=== PATIENT | female | born 1935 | race Caucasian/White ===

== ENCOUNTER 2017-09-22 08:20 | Emergency (ER) | payer MEDICARE, BC ==
[2017-09-22 08:40] VITALS: BP 134/47
--- NOTE | 2017-09-22 09:32 | RAD ---
Indication: Shortness of breath, cough. Comparison is made with previous exam dated August 08, 2016. 2 views of the chest including dual energy PA views demonstrate no mediastinal shift. Heart is of normal size. There appears to be calcifications of the mitral valve annulus. There is blunting of the costophrenic angles bilaterally which may represent small pleural effusions. IMPRESSION: There may be small pleural effusions. No definite pneumonia is identified.
--- NOTE | 2017-09-22 10:11 | UC ---
Jose Chisholm Benjamin, scribed for Kendall Desir MD on 09/22/17 at 0921 . Respiratory Complaint HPI - HPI Summary HPI Summary: 82yo female c/o congested cough for 3-4 days with some sputum production. Pt also feels SOB and winded. Also reports runny nose preceding her cough. Pt states that several people at her mandaen have PNA. Pt is scheduled for a left hip revision on 10/05. Pt is concerned about whether she will still be cleared for surgery after developing her current symptoms. PMHx of HTN, arthritis, heart murmur, CHF, and multiple orthopedic operations. - History of Current Complaint Chief Complaint: UCGeneralIllness Stated Complaint: RESP Hx Obtained From: Patient, Family/Consultant - daughter ?: No Onset/Duration: Gradual Onset, Lasting Days - 3-4 days, Still Present Timing: Constant Severity Initially: Mild Severity Currently: Mild Pain Intensity: 0 Pain Scale Used: 0-10 Numeric Character: Cough: Productive Aggravating Factors: Nothing Alleviating Factors: Nothing Associated Signs And Symptoms: Positive: Nasal Congestion - Risk Factors Cardiac Risk Factors: Hypertension - Allergies/Home Medications Allergies/Adverse Reactions: Allergies Allergy/AdvReac Type Severity Reaction Status Date / Time Valsartan Allergy Intermediate Coughing Verified 09/22/17 08:24 Benazepril Allergy Coughing Verified 09/22/17 08:24 Penicillins Allergy Unknown Verified 09/22/17 08:24 Reaction Details Tramadol Allergy Unknown Verified 09/22/17 08:24 Reaction Details Home Medications: Home Medications Acetaminophen [Acetaminophen Extra Stren] 500 mg PO TID 09/22/17 [History Confirmed 09/22/17] Ferrous Gluconate TAB* [Fergon TAB*] 325 mg PO BID 09/22/17 [History Confirmed 09/22/17] Torsemide TAB* [Demadex*] 20 mg PO DAILY 09/22/17 [History Confirmed 09/22/17] PMH/Surg Hx/FS Hx/Imm Hx Cardiovascular History: Hypertension, Congestive Heart Failure - Surgical History Surgical History: Yes Surgery Procedure, Year, and Place: TONSILLECTOMY A CHILD. HYSTERECTOMY 1982 [facility]. L FOOT BUNIONECTOMY 2005 [facility]. R TKR 2006 [facility]. ORIF L ARM AND HIP 2006 [facility]. L THR 2012 [facility]. BILAT CATARACTS [facility] - Family History Known Family History: Negative: Blood Disorder Family History: No FHx malignant hyperthermia, no FHx anesthesia reaction - Social History Occupation: Retired Lives: Alone Alcohol Use: None Substance Use Type: None Smoking Status (MU): Never Smoked Tobacco - Immunization History Most Recent Influenza Vaccination: 2016 Most Recent Tetanus Shot: UNKNOWN Most Recent Pneumonia Vaccination: 2014 Review of Systems Constitutional: Negative Skin: Negative Eyes: Negative ENT: Nasal Discharge Respiratory: Shortness Of Breath, Cough Cardiovascular: Negative Gastrointestinal: Negative Genitourinary: Negative Motor: Negative Neurovascular: Negative Musculoskeletal: Negative Neurological: Negative Psychological: Negative All Other Systems Reviewed And Are Negative: Yes Physical Exam Triage Information Reviewed: Yes Vital Signs: Initial Vital Signs Temp 99.3 F 09/22/17 08:31 Pulse 56 09/22/17 08:31 Resp 22 09/22/17 08:31 BP 134/47 09/22/17 08:31 Pulse Ox 99 09/22/17 08:31 Vital Signs Reviewed: Yes ENT Exam: Normal ENT: Positive: Pharynx normal, Nasal congestion, TMs normal. Negative: Muffled voice, Hoarse voice Neck exam: Normal Respiratory: Positive: Chest non-tender, Lungs clear Cardiovascular: Positive: RRR, No Murmur Abdomen Description: Positive: Nontender Musculoskeletal: Positive: Strength Intact, ROM Intact. Negative: No Edema Neurological: Positive: Alert, Muscle Tone Normal Psychological: Positive: Normal Response To Family Skin Exam: Normal UC Diagnostic Evaluation - Laboratory Pertinent Lab Values Are: WNL - negative flu swab O2 Sat by Pulse Oximetry: 99 - Radiology Xray Interpretation: No Acute Changes - IMPRESSION: There may be small pleural effusions. No definite pneumonia is identified. Radiology Interpretation Completed By: Radiologist - ED physician has reviewed this radiology report and agrees. Respiratory Course/Dx - Course Course Of Treatment: Reviewed pts medication and allergy lists. High Blood pressure noted. Discussed pt case with Dr. Rousseau (pt's PCP) at [address] Rousseau reviewed her prior xrays and today, and given new possible small effusions and the productive cough, chills symptoms we will start her on Levaquin and he will see her tomorrow for reevaluation. - Differential Dx/Diagnosis Provider Diagnoses: Community Acquired Pnemonia Discharge - Discharge Plan Condition: Good Disposition: HOME Prescriptions: Levofloxacin TAB* [Levaquin TAB*] 500 mg PO DAILY #10 tab Patient Education Materials: Bacterial Pneumonia (ED) Referrals: Bebeto Rousseau MD [Primary Care Provider] - 1 Day The documentation as recorded by the Jose cornell Benjamin accurately reflects the service I personally performed and the decisions made by me, Kendall Desir MD.
== END 2017-09-22 10:15 | disposition home or self-care (01) ==
LOC: UCEAST 08:20
DX: J18.8 Other pneumonia, unspecified organism (principal); I50.9 Heart failure, unspecified; I10 Essential (primary) hypertension
CPT/HCPCS: 71020; 87502; 99212; G0463

== ENCOUNTER 2018-09-01 05:54 | Inpatient (IN) | payer MEDICARE, BC ==
--- NOTE | 2018-08-17 18:57 | HP ---
AMENDED REPORT NOW INCLUDES DESIGNATED COSIGNER PREOPERATIVE HISTORY AND PHYSICAL: DATE OF ADMISSION/SURGERY: 09/01/18 DATE OF OFFICE VISIT: 08/17/18 ATTENDING SURGEON: Dr. Robin Marie.* (DICTATED BY KEYSHA BUCHANAN) PROCEDURE: Right total shoulder reverse. CHIEF COMPLAINT: Right shoulder pain. HISTORY OF PRESENT ILLNESS: Shadia is an 83-year-old female, who presents to the clinic for right shoulder pain due to osteoarthritis. She failed conservative measures and therefore agreed to undergo right total shoulder reverse with Dr. Marie on 09/01/18. PAST MEDICAL HISTORY: High cholesterol, hypertension, recent NM in July 2016 , GERD, and osteoporosis. PAST SURGICAL HISTORY: Gamma nail of the left hip, left hip hemiarthroplasty and left total hip arthroplasty, left shoulder replacement, right total knee arthroplasty, right toe surgery, and hysterectomy. The patient denies complications to anesthesia. She does get nausea with anesthesia. MEDICATIONS: 1. Metoprolol succinate ER 100 mg 1 by mouth every day. 2. Amlodipine 10 mg 1 by mouth every day. 3. Calcium, vitamin E 600 mg 2 by mouth every day. 4. Atorvastatin calcium 80 mg 1 by mouth every day. 5. Aspirin 81 mg 1 by mouth every day. 6. Olmesartan 40 mg once daily. 7. Torsemide 10 mg once daily. 8. Tylenol Extra Strength 500 mg 1 by mouth 6 times per day. ALLERGIES: PENICILLIN, VALSARTAN, some BLOOD PRESSURE MEDS. FAMILY HISTORY: Positive for heart disease, cancer, and hypertension. SOCIAL HISTORY: She lives alone. 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 She denies tobacco, alcohol, or illicit drug use. REVIEW OF SYSTEMS: A 14-point review of systems was reviewed with the patient. Positive for current complaints, otherwise negative. Denies fevers, chills, chest pain, shortness of breath, history of DVT or PE, history of bleeding disorder, history of MRSA. PHYSICAL EXAMINATION GENERAL: An 83-year-old well-developed, well-nourished female, in no acute distress. Alert and oriented x3. Appropriate mood and affect. Appropriate balance and coordination of the upper extremities. VITAL SIGNS: Height 59, weight 122, pulse 60, blood pressure 162/74, temperature 97.7, BMI 24.8. HEENT: Normocephalic, atraumatic. PERRLA. Throat clear. NECK: Supple. PULMONARY: Lungs clear to auscultation bilaterally. No wheezing, rhonchi, or rales. CARDIO: Regular rate and rhythm. S1 and S2. No murmurs, gallops, or rubs. No edema. ABDOMEN: Positive bowel sounds. Soft and nontender. MUSCULOSKELETAL: Right upper extremity skin intact. No warmth or erythema. Forward flexion 100, abduction 80, external rotation to 30. Full range of motion of the elbow, wrist, and hand. +2 radial pulse. Sensation intact to light touch distally. Pain and weakness through rotator cuff testing. NEURO: Alert and oriented x3. Cranial nerves grossly intact. Sensation intact to light touch. STUDIES: X-rays and MRIs reveal advanced glenohumeral joint osteoarthritis, massive full-thickness rotator cuff retracted with superior migration of the humeral head. ASSESSMENT: Right shoulder osteoarthritis. PLAN: The patient is scheduled to undergo a right total shoulder reverse with Dr. Marie on 09/01/18. Zofran will be used postoperatively on the floor to prevent nausea. We will watch IV fluids and minimize the use of IV fluids due to her history of heart failure. Percocet will be e-scribed for postop pain management. She will follow up 10 to 14 days postop for followup and suture removal. KEYSHA BUCHANAN [id number]/[facility] #: [id number] MTDD
[~2018-09-01 05:54] MED LIST: Buffered Lidocaine 0.9% SYRIN* 5 ML/SYR SYRINGE INTRADERM ONE; Morphine VIAL* 4 MG/ML VIAL (1 ml vial) IV PRN; Naloxone* 0.4 MG/ML 1 ML VIAL IV PRN; Ondansetron TAB* 4 MG PO ONE; PROCHLORPERAZINE INJ 5 MG/ML 2 ML VIAL IV PRN; fentaNYL* 50 MCG/ML 2 ML VIAL (100 MCG VIAL) IV PRN
--- OUTSIDE RECORDS SUMMARY | 2018-09-01 05:58 | XMS REPORT ---
:1935 External Reference #:[id number] Author Organization [facility] Address [address] [place] [address] Phone [phone] Care Team Providers Name Role Phone Bebeto Rousseau MD Primary Care Physician Unavailable Payers Type Date Identification Numbers Payment Provider Subscriber Medicare Primary Policy Number: [id number] Medicare Kathy Damongorder PayID: [id number] [address] [place] [address] [place] Part B Effective: 2005 Policy Number: Medicare Kathy Engelrder [id number] Expires: 2018 PayID: [id number] [address] [place] [address] [employer] Part B Effective: Policy Number: [facility] Kathy Damongorder 2014 [id number] PayID: [id number] [address] [address] [place] [address] Problems Date Description Provider Status Onset: 07/26/2015 Localized, secondary Aaron Jurado M.D. 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 Cigarette Use Never Smoked Cigarettes ETOH Use Denies alcohol use Smoking Patient has never smoked Recreational Drug Use Denies Drug Use Daily Caffeine Consumes on average 2 cups of regular coffee per day Exercise Type/Frequency Exercises regularly Short walks to mailboxDocument: 07/22/17 - Pulmonology Consultation Exercise Type/Frequency ROM class 2x per weekDocument: 07/22/17 - Pulmonology Consultation Allergies, Adverse Reactions, Alerts Date Description Reaction Status Severity Comments 10/02/2015 Penicillin active 10/02/2015 Some Blood Pressure Medications active 08/14/2016 Valsartan active 07/10/2015 NKDA inactive Medications Medication Date Status Form Strength Qnty SIG Indications Ordering Provider Metoprolol / Active Tablets ER 100mg 1 by mouth Unknown Succinate ER 0000 24HR every day pt now receives medication from Dr Rousseau Amlodipine / Active Tablets 10mg 1 by mouth Unknown Besylate 0000 every day Calcium With / Active Tablets 600mg 2 by mouth Unknown Vit D 600 0000 every day Atorvastatin 00/ Active Tablets 80mg 1 by mouth Unknown Calcium 0000 every day Aspir-Low 00/ Active Tablets DR 81mg 1 by mouth Unknown 0000 every day Olmesartan /00/ Active Tablets 40mg Once daily Unknown Medoxomil 0000 Torsemide / Active Tablets 10mg 1 po daily Unknown 0000 Tylenol Extra 00/ Active Tablets 500mg 1 po 6 Unknown Strength 0000 times per day Proair HFA 07/22/ Hx Aerosol 108(90Bas 8.500 1 puff R06.02 Ivis 2017 - e) gm every 6 Felipa, 08/02/ mcg/Act hours as 2018 needed Lidoderm 09/04/ Hx Patches 5% 30uni apply every Zaneb 2015 - 12 hours as Cynthia 03/05/ needed for MD Hernandez pain Meloxicam / Hx Suspension 7.5mg/5ML Unknown 0000 - 2015 Benicar HCT / Hx Tablets 40-12.5mg daily Unknown 0000 - 2016 Simvastatin /00/ Hx Tablets 20mg 1 by mouth Unknown 0000 - every day 2015 Tylenol / Hx Tablets 325mg prn Unknown 0000 - 2016 Aspirin / Hx Tablets DR 81mg 1 by mouth Unknown 0000 - every day 2016 Clopidogrel / Hx Tablets 75mg 1 by mouth Unknown Bisulfate 0000 - every day 2017 Furosemide / Hx Tablets 40mg alternate Marcis T. 0000 - 40mg and Sodums, 01/13/ 80mgs , [facility], 2018 [facility] Potassium / Hx Tablets ER 40Meq 1 by mouth Unknown Chloride ER 0000 - every day 2017 Nitrostat / Hx Tablets Sub 0.4mg one sl Unknown 0000 - q5min up to doses as 2017 needed Iron / Hx Tablets 325(65Fe) 2 by mouth Unknown 0000 - mg every day Am and PM 2017 (pre-op. Surgery Thursday) Medications Administered in Office Medication Date Status Form Strength Qnty SIG Indications Ordering Provider Triamcinolone 03/26/ Administered Injection Zaneb (Kenalog) 2017 MD Cynthia Depomedrol 80MG 07/10/ Administered Injection Aaron Jurado M.D. Vital Signs Date Vital Result Comment 08/17/2018 Height 59 inches 4'11" Weight 122.75 lb Heart Rate 60 /min BP Systolic Sitting 162 mmHg BP Diastolic Sitting 74 mmHg Body Temperature 97.7 F Pain Level 6 intermittent 10 BMI (Body Mass Index) 24.8 kg/m2 08/03/2018 Height 59 inches 4'11" Weight 120.00 lb Heart Rate 84 /min BP Systolic 146 mmHg BP Diastolic 60 mmHg Respiratory Rate 22 /min Body Temperature 98.6 F Pain Level 8 right shoulder BMI (Body Mass Index) 24.2 kg/m2 03/26/2018 Height 59 inches 4'11" Weight 120.00 lb BP Systolic 120 mmHg BP Diastolic 64 mmHg Respiratory Rate 20 /min Body Temperature 98.1 F Pain Level 7 BMI (Body Mass Index) 24.2 kg/m2 01/14/2018 Height 59 inches 4'11" Weight 120.00 lb Heart Rate 64 /min BP Systolic Sitting 144 mmHg Lue reg cuff BP Diastolic Sitting 62 mmHg Lue reg cuff Respiratory Rate 16 /min O2 % BldC Oximetry 98 % On Ra BMI (Body Mass Index) 24.2 kg/m2 01/14/2018 Height 59 inches 4'11" O2 % BldC Oximetry 98 % On Ra 07/22/2017 Height 59 inches 4'11" Weight 118.38 lb With shoes Heart Rate 64 /min BP Systolic Sitting 144 mmHg Rue reg cuff BP Diastolic Sitting 66 mmHg Rue reg cuff Respiratory Rate 16 /min O2 % BldC Oximetry 97 % On Ra BMI (Body Mass Index) 23.9 kg/m2 07/02/2017 Height 58.75 inches 4'10.75" Weight 119.00 lb shoes on Heart Rate 58 /min BP Systolic Sitting 130 mmHg lue reg cuff BP Diastolic Sitting 62 mmHg lue reg cuff BP Systolic Standing 134 mmHg lue reg cuff BP Diastolic Standing 62 mmHg lue reg cuff BMI (Body Mass Index) 24.2 kg/m2 Ejection Fraction 65% Echo 09/08/16 03/06/2017 Height 58.75 inches 4'10.75" Weight 108.00 lb Heart Rate 64 /min BP Systolic 143 mmHg BP Diastolic 59 mmHg Body Temperature 97.4 F Pain Level 8 BMI (Body Mass Index) 22.0 kg/m2 09/04/2016 Height 59 inches 4'11" Weight 122.00 lb Heart Rate 60 /min Respiratory Rate 16 /min Pain Level 5 BMI (Body Mass Index) 24.6 kg/m2 08/29/2016 Height 59 inches 4'11" Weight 122.50 lb with shoes Heart Rate 64 /min BP Systolic Sitting 152 mmHg LA reg cuff BP Diastolic Sitting 80 mmHg LA reg cuff BMI (Body Mass Index) 24.7 kg/m2 Ejection Fraction >65% 08/08/16 echo 08/18/2016 Height 59 inches 4'11" Weight 123.00 lb Heart Rate 52 /min 56 BP Systolic Sitting 142 mmHg right arm, reg cuff BP Diastolic Sitting 66 mmHg right arm, reg cuff BP Systolic Standing 138 mmHg right arm, reg cuff BP Diastolic Standing 66 mmHg right arm, reg cuff Respiratory Rate 16 /min BMI (Body Mass Index) 24.8 kg/m2 Ejection Fraction >65% 08/08/16 08/14/2016 Height 59 inches 4'11" Weight 123.00 lb Heart Rate 54 /min 58 BP Systolic Sitting 128 mmHg right arm, reg cuff BP Diastolic Sitting 68 mmHg right arm, reg cuff BP Systolic Standing 126 mmHg right arm, reg cuff BP Diastolic Standing 64 mmHg right arm, reg cuff Respiratory Rate 16 /min BMI (Body Mass Index) 24.8 kg/m2 Ejection Fraction >65% 08/08/16 07/24/2016 Height 59 inches 4'11" Weight 125.00 lb Respiratory Rate 16 /min Pain Level 6 BMI (Body Mass Index) 25.2 kg/m2 01/22/2016 Height 59 inches 4'11" Weight 123.00 lb Pain Level 1 BMI (Body Mass Index) 24.8 kg/m2 11/13/2015 Height 59 inches 4'11" Weight 123.00 lb Pain Level 2 BMI (Body Mass Index) 24.8 kg/m2 10/02/2015 Height 69 inches 5'9" Weight 123.00 lb Pain Level 0 BMI (Body Mass Index) 18.2 kg/m2 08/28/2015 Height 59 inches 4'11" Weight 123.00 lb Body Temperature 99.1 F Pain Level 0 BMI (Body Mass Index) 24.8 kg/m2 07/26/2015 Height 59 inches 4'11" Weight 123.00 lb Pain Level 5 BMI (Body Mass Index) 24.8 kg/m2 07/10/2015 Height 59 inches 4'11" Weight 123.00 lb Heart Rate 57 /min BP Systolic Sitting 166 mmHg BP Diastolic Sitting 88 mmHg Respiratory Rate 18 /min Pain Level 4 BMI (Body Mass Index) 24.8 kg/m2 Results Test Date Test Result H/L Range Note Laboratory test 08/14/2016 B-Type Natriuretic 330 pg/mL High 1 finding Peptide BNP Basic Metabolic Panel 08/14/2016 Sodium 132 mmol/L Low 133-145 Potassium 4.3 mmol/L 3.5-5.0 Chloride 96 mmol/L Low 101-111 Co2 Carbon Dioxide 27 mmol/L 22-32 Anion Gap 9 mmol/L 2-11 Glucose 96 mg/dL 70-100 Blood Urea Nitrogen 31 mg/dL High 6-24 Creatinine 1.47 mg/dL High 0.51-0.95 BUN/Creatinine Ratio 21.1 High 8-20 Calcium 10.0 mg/dL 8.6-10.3 Egfr Non- 33.9 >60 Egfr 43.7 >60 2 Laboratory test finding 07/24/2016 Erythrocyte Sed Rate 2 mm/Hr 0-40 C Reactive Protein < 1.00 mg/L < 5.00 3 CBC Auto Diff 07/24/2016 White Blood Count 9.9 10^3/uL 3.5-10.8 Red Blood Count 4.96 10^6/uL 4.0-5.4 Hemoglobin 14.0 g/dL 12.0-16.0 Hematocrit 41 % 35-47 Mean Corpuscular Volume 83 fL 80-97 Mean Corpuscular Hemoglobin 28 pg 27-31 Mean Corpuscular HGB Conc 34 g/dL 31-36 Red Cell Distribution Width 14 % 10.5-15 Platelet Count 222 10^3/uL 150-450 Mean Platelet Volume 10 um3 7.4-10.4 Abs Neutrophils 8.2 10^3/uL High 1.5-7.7 Abs Lymphocytes 0.8 10^3/uL Low 1.0-4.8 Abs Monocytes 0.6 10^3/uL 0-0.8 Abs Eosinophils 0.1 10^3/uL 0-0.6 Abs Basophils 0 10^3/uL 0-0.2 Abs Nucleated RBC 0.02 10^3/uL Granulocyte % 83.7 % High 38-83 Lymphocyte % 8.6 % Low 25-47 Monocyte % 6.0 % 1-9 Eosinophil % 1.2 % 0-6 Basophil % 0.5 % 0-2 Nucleated Red Blood Cells % 0.3 Inr/Protime 08/08/2015 Inr 0.87 0.78-1.07 Laboratory test finding 08/08/2015 Partial Thrombo Time 28.6 seconds 26.0 -36.3 PTT Basic Metabolic Panel 08/08/2015 Sodium 133 mmol/L 133-145 Potassium 4.1 mmol/L 3.5-5.0 Chloride 96 mmol/L Low 101-111 Co2 Carbon Dioxide 28 mmol/L 22-32 Anion Gap 9 mmol/L 2-11 Glucose 102 mg/dL High 70-100 Blood Urea Nitrogen 28 mg/dL High 6-24 Creatinine 1.29 mg/dL High 0.51-0.95 BUN/Creatinine Ratio 21.7 High 8-20 Calcium 9.7 mg/dL 8.6-10.3 Egfr Non- 39.6 >60 Egfr 50.9 >60 4 Laboratory test finding 08/08/2015 Urine Culture And SEE RESULT BELOW 5 Sensitivities Urinalysis Profile 08/08/2015 Urine Color Yellow Urine Appearance Cloudy Urine Specific [place] 1.031 High 1.010-1.030 Urine pH 5.0 5-9 Urine Urobilinogen Negative Negative Urine Ketones Negative Negative Urine Protein Negative Negative Urine Leukocytes 2+ Negative Urine Blood Negative Negative Urine Nitrite Negative Negative Urine Bilirubin Negative Negative Urine Glucose Negative Negative Urine White Blood Cell 2+(11-20/hpf) Absent Urine Red Blood Cell 3+(>10/hpf) Absent Urine Bacteria Absent Absent Urine Squamous Epithelial Cell Present Absent CBC No Diff 08/08/2015 White Blood Count 8.2 10^3/uL 4.8-10.8 Red Blood Count 4.84 10^6/uL 4.0-5.4 Hemoglobin 14.2 g/dL 12.0-16.0 Hematocrit 42 % 35-47 Mean Corpuscular Volume 87 fL 80-97 Mean Corpuscular Hemoglobin 29 pg 27-31 Mean Corpuscular HGB Conc 34 g/dL 31-36 Red Cell Distribution Width 15 % 10.5-15 Platelet Count 245 10^3/uL 150-450 Mean Platelet Volume 8 um3 7.4-10.4 1 >100 to <200 pg/mL: likely compensated congestive heart failure (CHF) 200 to 400 pg/mL: likely moderate CHF >400 pg/mL: likely moderate to severe CHF 2 Because ethnic data is not always readily available, this report includes an eGFR for both -Americans and non- Americans. The National Kidney Disease Education Program (NKDEP) does not endorse the use of the MDRD equation for patients that are not between the ages of 18 and 70, are , have extremes of body size, muscle mass, or nutritional status, or are non- or non-. According to the National Kidney Foundation, irrespective of diagnosis, the stage of the disease is based on the level of kidney function: Stage Description GFR(mL/min/1.73 m(2)) 1 Kidney damage with normal or decreased GFR 90 2 Kidney damage with mild decrease in GFR 60-89 3 Moderate decrease in GFR 30-59 4 Severe decrease in GFR 15-29 5 Kidney failure <15 (or dialysis) 3 Acute inflammation: >10.00 4 Because ethnic data is not always readily available, this report includes an eGFR for both -Americans and non- Americans. The National Kidney Disease Education Program (NKDEP) does not endorse the use of the MDRD equation for patients that are not between the ages of 18 and 70, are , have extremes of body size, muscle mass, or nutritional status, or are non- or non-. According to the National Kidney Foundation, irrespective of diagnosis, the stage of the disease is based on the level of kidney function: Stage Description GFR(mL/min/1.73 m(2)) 1 Kidney damage with normal or decreased GFR 90 2 Kidney damage with mild decrease in GFR 60-89 3 Moderate decrease in GFR 30-59 4 Severe decrease in GFR 15-29 5 Kidney failure <15 (or dialysis) 5 SEE RESULT BELOW Name: KATHY JAMES : [address]: Aaron Jurado MD Acct: [id number] Unit: [id number] AGE: 80 Location: [facility] Re08/08/15 SEX: F Status: REG REF SPEC: [id number] MARCK: 08/08/151525 SUBM DR: Aaron Jurado MD REQ: [id number] RECD: 08/08/15 STATUS: COMP _ SOURCE: URINE SPDESC: ORDERED: Urine Culture QUERIES: Urine Source: Random Procedure Result Verified Site Urine Culture Final 08/10/15- 1024 ML Organism 1 NORMAL RUSTY [place] Count 25-50,000 (Moderate) CFU/ML * ML - MAIN LAB (PSC1) . END OF REPORT * ML=Testing performed at Main Lab DEPARTMENT OF PATHOLOGY, [address] [place] [address] Zane Myles M.D. Director [facility] # [id number] Procedures Date CPT Code Description Status 03/26/2018 04484 Inject/Drain Joint/Bursa Major W/O US Completed 08/18/2017 00648 Diffusing Capacity Completed 08/18/2017 24461 Plethysmography Determination Lung Volumes & Per Airway Completed Resist 08/18/2017 03370 Pulmonary Function><Bronchodil Completed 08/11/2016 78298 EKG, Interpretation Only Completed 08/10/2016 35489 EKG, Interpretation Only Completed 08/09/2016 57838 EKG, Interpretation Only Completed 08/08/2016 07671 Left Heart Cath. Incl S/I Coronaries, Angio S/I V Gram Completed If Done 08/08/2016 93359 Echocardiogram, Limited Study Completed 08/08/2016 05660 EKG, Interpretation Only Completed 08/15/2015 28608 Arthroplasty,Total Shoulder Replacement (TSR) Completed 08/15/2015 24734 Arthroplasty,Total Shoulder Replacement (TSR) Completed 08/08/2015 50655 EKG, Interpretation Only Completed 07/10/2015 81986 Inject/Drain Joint/Bursa Major W/O US Completed Encounters Type Date Location Provider CPT E/M Dx Office Visit 08/03/2018 [facility] [place] [address] M19.011 1:15p C.[facility] Office Visit 03/26/2018 [facility] [place] [address] M19.011 11:00a C.M.A. Office Visit 01/14/2018 [facility] [address] J45.20 1:30p Services Of [facility] Z57.4 Office Visit 07/22/2017 11:00a [facility] [address] R06.02 Services Of [facility] J98.4 Office Visit 07/02/2017 10:40a [facility] Cady Pinto, 75154 I25.2 Procurement Officer AT [facility] CONRAD HUANG, FSCAI I50.32 N18.3 Office Visit 03/06/2017 1:30p [facility] Minoo Greene M.D. 92345 M16.52 C.M.A. M25.552 Z96.642 Z96.642 M16.52 Office Visit 09/04/2016 3:30p [facility] [place] [address] Z96.612 C.M.A. M19.011 Office Visit 08/29/2016 11:00a [facility] Cady Pinto, 96197 I72.8 Procurement Officer AT [facility] CONRAD HUANG, FSCAI I50.32 Office Visit 08/18/2016 11:20a [facility] Cady Pinto, 57459 I72.8 Procurement Officer AT [facility] CONRAD HUANG, FSCAI I50.32 Office Visit 08/14/2016 3:00p [facility] Cady Pinto, 78218 I21.29 Procurement Officer AT [facility] CONRAD HUANG, FSCAI I50.32 N18.3 Office Visit 08/11/2016 2:02p [facility] Cady Pinto, 15739 I21.29 Procurement Officer AT [facility] CONRAD HUANG, FSCAI I45.10 I50.32 I12.9 N18.2 E78.5 Office Visit 08/10/2016 12:20p [facility] Cady Pinto, 76667 I21.29 Procurement Officer AT [facility] CONRAD HUANG, FSCAI I12.9 N18.2 I50.32 Office Visit 08/09/2016 12:19p [facility] Cady Pinto, 93929 I21.29 Procurement Officer AT [facility] CONRAD HUANG, FSCAI I12.9 N18.2 I50.32 Office Visit 08/08/2016 12:39p [facility] Cady Pinto, 15721 R07.89 Procurement Officer AT [facility] CONRAD HUANG, FSCAI I12.9 N18.2 I50.32 Office Visit 07/24/2016 8:45a [facility] [place] [address] Z96.612 C.M.A. M19.011 Office Visit 01/22/2016 2:30p [facility] [place] [address] Z96.612 C.M.A. M19.012 Office Visit 07/26/2015 1:45p [facility] Aaron Jurado M.D. 66372 M19.212 C.M.A. Office Visit 07/10/2015 9:00a [facility] Aaron Jurado M.D. 77686 715.11 C.M.A. Plan of Care Future Appointment(s):09/14/2018 9:45 am - Robin Marie MD at [facility]09/01/2018 7:30 am - Robin Marie MD at [facility]08/17/2018 - Robin Marie, MDM19.011 Primary osteoarthritis, right shoulderFollow up:Follow up: 10-14 days post op
--- OUTSIDE RECORDS SUMMARY | 2018-09-01 05:59 | XMS REPORT ---
:1935 External Reference #:[id number] Author Organization [employer] Address [address] [place] [address] Phone [phone] Care Team Providers Name Role Phone Bebeto Rousseau MD Primary Care Physician Unavailable Payers Type Date Identification Numbers Payment Provider Subscriber Medicare Primary Policy Number: [id number] Medicare Kathy Damongorder PayID: [id number] [address] [place] [address] [place] Part B Effective: 2005 Policy Number: Medicare Kathy Engelrder [id number] Expires: 2018 PayID: [id number] [address] [place] [address] Med[employer]ap Part B Effective: Policy Number: [facility] Kathy Damongorder 2014 [id number] PayID: [id number] [address] [address] [place] [address] Problems Date Description Provider Status Onset: 07/26/2015 Localized, secondary Aaron Jurado M.D. 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 0000 - 40mg and Sodums, 01/13/ 80mgs , [facility], 2018 F[facility] Potassium / Hx Tablets ER [...] Cynthia Depomedrol 80MG 07/10/ Administered Injection Aaron 2014 Levon Jurado Vital Signs Date Vital Result Comment 08/03/2018 Height 59 inches 4'11" Weight 120.00 [...] Color Yellow Urine Appearance Cloudy Urine Specific [place] 1.031 High 1.010-1.030 Urine pH 5.0 5-9 [...] [address]: Aaron Jurado MD Acct: [id number] Unit: [id number] AGE: 80 Location: [facility] Re08/08/15 SEX: F Status: REG REF SPEC: [id number] MARCK: 08/08/[address] [facility] [address]: Aaron Jurado MD REQ: [id number] RECD: 08/08/15 STATUS: COMP _ SOURCE: URINE SPDESC: ORDERED: Urine Culture QUERIES: Urine Source: Random Procedure Result Verified Site Urine Culture Final 08/10/15- 1024 ML Organism 1 NORMAL RUSTY [place] Count 25-50,000 (Moderate) CFU/ML * ML - MAIN LAB (PSC1) . END OF REPORT * ML=Testing performed at Main Lab DEPARTMENT OF PATHOLOGY, [address] [place] [address] Zane Myles M.D. Director [facility] # [id number] Procedures Date CPT Code Description Status 03/26/2018 69135 Inject/Drain Joint/Bursa Major W/O US Completed 08/18/2017 82515 Diffusing Capacity Completed 08/18/2017 07454 Plethysmography Determination Lung Volumes & Per Airway Completed Resist 08/18/2017 43023 Pulmonary Function><Bronchodil Completed 08/11/2016 15781 EKG, Interpretation Only Completed 08/10/2016 18333 EKG, Interpretation Only Completed 08/09/2016 66546 EKG, Interpretation Only Completed 08/08/2016 71693 Left Heart Cath. Incl S/I Coronaries, Angio S/I V Gram Completed If Done 08/08/2016 87896 Echocardiogram, Limited Study Completed 08/08/2016 47365 EKG, Interpretation Only Completed 08/15/2015 73914 Arthroplasty,Total Shoulder Replacement (TSR) Completed 08/15/2015 82674 Arthroplasty,Total Shoulder Replacement (TSR) Completed 08/08/2015 37748 EKG, Interpretation Only Completed 07/10/2015 11435 Inject/Drain Joint/Bursa Major W/O US Completed Encounters Type Date Location Provider CPT E/M Dx Office Visit 08/03/2018 [facility] [place] [address] M19.011 1:15p C.M.A. Office Visit 03/26/2018 [facility] [place] [address] M19.011 11:00a C.M.A. Office Visit 01/14/2018 [facility] [address] J45.20 1:30p Services Of [facility]oss[facility] Z57.4 Office Visit 07/22/2017 11:00a [facility] [address] R06.02 Services Of [facility] J98.4 Office Visit 07/02/2017 10:40a [facility] Cady Pinto, 04866 I25.2 A R Collections Rep AT [facility] CONRAD HUANG, FSCAI I50.32 N18.3 Office Visit 03/06/2017 1:30p [facility] Minoo Greene M.D. 16479 M16.52 C.M.A. M25.552 Z96.642 Z96.642 M16.52 Office Visit 09/04/2016 3:30p [facility] [place] [address] Z96.612 C.M.A. M19.011 Office Visit 08/29/2016 11:00a [facility] Cady Pinto, 71668 I72.8 A R Collections Rep AT [facility] CONRAD HUANG, FSCAI I50.32 Office Visit 08/18/2016 11:20a [facility] Cady Pinto, 64834 I72.8 A R Collections Rep AT [facility] CONRAD HUANG, FSCAI I50.32 Office Visit 08/14/2016 3:00p [facility] Cady Pinto, 03440 I21.29 A R Collections Rep AT [facility] CONRAD HUANG, FSCAI I50.32 N18.3 Office Visit 08/11/2016 2:02p [facility] Cady Pinto, 08913 I21.29 A R Collections Rep AT [facility] CONRAD HUANG, FSCAI I45.10 I50.32 I12.9 N18.2 E78.5 Office Visit 08/10/2016 12:20p [facility] Cady Pinto, 55276 I21.29 A R Collections Rep AT [facility] CONRAD HUANG, FSCAI I12.9 N18.2 I50.32 Office Visit 08/09/2016 12:19p [facility] Cady Pinto, 73769 I21.29 A R Collections Rep AT [facility] CONRAD HUANG, FSCAI I12.9 N18.2 I50.32 Office Visit 08/08/2016 12:39p [facility] Cady [place], 52407 R07.89 A R Collections Rep AT [facility] CONRAD HUANG, FSCAI I12.9 N18.2 I50.32 Office Visit 07/24/2016 8:45a [facility] [place] [address] Z96.612 C.M.A. M19.011 Office Visit 01/22/2016 2:30p [facility] [place] [address] Z96.612 C.M.A. M19.012 Office Visit 07/26/2015 1:45p [facility] Aaron Jurado M.D. 98802 M19.212 C.M.A. Office Visit 07/10/2015 9:00a [facility] Aaron Jurado M.D. 79368 715.11 C.M.A. Plan of Care Future Appointment(s):08/17/2018 1:00 pm - Robin Marie MD at [facility]08/03/2018 - Robin Marie MDM19.011 Primary osteoarthritis, right shoulderFollow up:Follow up: h and p
[2018-09-01] MEDS ORDERED: Dexamethasone TAB* 6 MG PO ONE (06:00)
[2018-09-01] MEDS ORDERED: Famotidine IV* 10 MG/ML 2 ML (20 mg) IV ONE (06:00)
[2018-09-01] MEDS ORDERED: Famotidine IV* 10 MG/ML 2 ML (20 mg) ONE (06:08)
[2018-09-01] MEDS ORDERED: Ondansetron ODT TAB* 4 MG ONE (06:08)
[2018-09-01] MEDS ORDERED: Clindamycin 900 MG/D5W BAG(*) 900 MG/50 ML BAG IVPB ONE (06:09)
[2018-09-01] MEDS ORDERED: Dexamethasone TAB* 4 MG ONE (06:09)
[2018-09-01] MEDS ORDERED: Midazolam* 1 MG/ML 2 ML VIAL (2 MG) ONE (07:04)
[2018-09-01] MEDS ORDERED: KETAMINE HCL* 50 MG/ML 10 ML VIAL ONE (07:04)
[2018-09-01] MEDS ORDERED: fentaNYL* 50 MCG/ML 2 ML VIAL (100 MCG VIAL) ONE (07:04)
[2018-09-01] MEDS ORDERED: Atracurium* 10 MG/ML 10 ML VIAL ONE (07:05)
[2018-09-01] MEDS ORDERED: Phenylephrine INJ* 10 MG/ML 1 ML VIAL (10 MG) ONE (08:52)
[2018-09-01] MEDS ORDERED: Propofol* 10 MG/ML 20 ML BTL IV PUSH ONE (08:52)
[2018-09-01] MEDS ORDERED: Norepinephrine VIAL* 1 MG/ML 4 ML VIAL ONE (08:52)
[2018-09-01] MEDS ORDERED: Lidocaine 2% PF * 5 ML VIAL ONE (08:52)
[2018-09-01] MEDS ORDERED: EPHEDrine (Pressors)* 50 MG/ML VIAL ONE (08:52)
[2018-09-01] MEDS ORDERED: Glycopyrrolate IV* 0.2 MG/ML 1 ML VIAL ONE ×2 (08:52→09:18)
[2018-09-01] MEDS ORDERED: Bupivacaine 0.5% SDV PF* 30ML VIAL ONE (08:52)
[2018-09-01] MEDS ORDERED: Morphine VIAL* 10 MG/ML 1 ML VIAL ONE (09:17)
[2018-09-01] MEDS ORDERED: Neostigmine Methylsulfate* 1 MG/ML 10 ML VIAL (1 mg/ml) ONE (09:18)
[2018-09-01] MEDS ORDERED: Metoprolol Tartrate IV* 1 MG/ML 5 ML VIAL ONE (09:22)
[2018-09-01] MEDS ORDERED: Ketorolac INJ* 30 MG/ML 1 ML VIAL ONE (09:27)
[2018-09-01] MEDS ORDERED: Morphine VIAL* 4 MG/ML VIAL (1 ml vial) IV ONE (09:56)
[2018-09-01] MEDS ORDERED: oxyCODONE/Acetamin 5/325 MG* TAB PO PRN (10:03)
[2018-09-01] MEDS ORDERED: diPHENhydraMINE IV* 50 MG/ML 1 ml VIAL (BENADRYL) IV PRN (10:03)
[2018-09-01] MEDS ORDERED: Cyclobenzaprine TAB* 10 MG PO PRN (10:03)
[2018-09-01] MEDS ORDERED: Ondansetron ODT TAB* 4 MG PO PRN (10:03)
[2018-09-01] MEDS ORDERED: Bisacodyl SUPP* 10 MG SUPP PR PRN (10:03)
[2018-09-01] MEDS ORDERED: Polyethylene Glycol 3350* 17 GM PACKET PO PRN (10:03)
[2018-09-01] MEDS ORDERED: Morphine VIAL* 4 MG/ML VIAL (1 ml vial) IV PRN (10:03)
[2018-09-01] MEDS ORDERED: Temazepam CAP* 15 MG PO PRN (10:03)
[2018-09-01] MEDS ORDERED: diPHENhydraMINE LIQ* 12.5 MG/5 ML UDC PO PRN (10:03)
[2018-09-01] MEDS ORDERED: Ondansetron INJ* 2 MG/ML VIAL IV PRN (10:03)
[2018-09-01] MEDS ORDERED: Magnesium Hydroxide LIQ* 30 ML UDC PO PRN (10:03)
[2018-09-01] MEDS ORDERED: Nitroglycerin TAB 0.4 MG* 0.4 MG TAB SL PRN (10:06)
[2018-09-01] MEDS ORDERED: Bupivacaine 0.25% SDV* 30 ML ONE (10:45)
[2018-09-01] MEDS: Acetaminophen TAB* 325 MG PO SCH ×2 (13:25→20:35)
[2018-09-01] MEDS ORDERED: Scopolamine 1.5 mg* PATCH TRANSDERM ONE (15:00)
[2018-09-01] MEDS: Clindamycin 600 MG IVPREMIX(* 600 MG/50 ML SDV IV SCH (16:16)
[2018-09-01] MEDS: Atorvastatin* 80 MG TAB PO SCH (17:08)
[2018-09-01] MEDS: amLODIPine TAB* 5 MG PO SCH (17:08)
[2018-09-01] MEDS ORDERED: DiMENhydriNATE IV* 50 MG/ML VIAL IV PUSH PRN (17:14)
[2018-09-01] MEDS: Calcium Carbonate TAB* 1250 MG (CALCIUM 500 MG) PO SCH (20:36)
[2018-09-01] MEDS: Docusate CAP* 100 MG PO SCH (20:36)
--- NOTE | 2018-09-01 21:56 | OP ---
CC: PCP, Dr. Rousseau * DATE OF OPERATION: 09/01/18 - ROOM #343 DATE OF : 31 SURGEON: Robin Marie MD ASSISTANTS: 1. KEYSHA Page 2. KEYSHA Leon ANESTHESIOLOGIST: Dr. Herbert. ANESTHESIA: General with interscalene block. PRE-OP DIAGNOSIS: Right shoulder rotator cuff arthropathy. POST-OP DIAGNOSIS: Right shoulder rotator cuff arthropathy. OPERATIVE PROCEDURE: Right shoulder reverse arthroplasty. INDICATIONS: Shadia Lott is an 83-year-old female, who has had significant right shoulder pseudoparalysis and pain. She has history of left reverse arthroplasty done by my partner, Dr. Jurado, several years ago, she did well with. She has elected to proceed with surgical treatment. She has failed conservative management including injections, physical therapy, anti- inflammatories. Risks and benefits of surgery were discussed at length and included, but not limited to bleeding, infection, damage to nerves, vessels, surrounding structures, wound nonhealing, persistent pain, need for further surgery, scarring, stiffness, incomplete relief of symptoms, risks of anesthesia. COMPLICATIONS: None. ESTIMATED BLOOD LOSS: Minimal. IMPLANTS USED: Tornier Aequalis Reversed 25 x 25 mm baseplate, 36 centered glenosphere, size 6B humeral stem with Flex Shoulder System Reversed tray and reversed insert poly +6. OUTPUT: Drain x1. DESCRIPTION OF PROCEDURE: The patient was greeted in the preoperative area by the attending surgeon. The correct extremity was marked and the consent was confirmed. The patient then underwent interscalene block by the anesthesiologist , after which she was brought back to the operating suite where she was placed in the supine position on the operating table. She then underwent general anesthesia with endotracheal intubation. The patient was then placed in [facility] chair position. All bony prominences were padded. The patient was appropriately positioned. The right shoulder was then prepped and draped in the usual sterile fashion beginning with chlorhexidine soap, scrub, and alcohol wipe and a final prep with ChloraPrep. After appropriate surgical pause indicating site, side, procedure, and administration of antibiotics, the deltopectoral incision was then made using a 15- blade. The soft tissues were carefully exposed to expose the deltopectoral interval. The cephalic vein and the deltoid were taken laterally. The soft tissues were carefully exposed. The coracoid was identified. The deltoid subbursal adhesions were then carefully released. There was a large cyst that was present on imaging as well was attached to the bursa itself, this was noted. The pec tendon insertion was identified as well as the conjoined tendon. The CA ligament was released. The proximal 1 cm of the pec was released. Biceps had already been tenotomized. The bicipital groove was identified and after removal of the bursa and the cyst, the groove was followed proximally. The anatomy was somewhat distorted, but the humeral circumflex vessels were cauterized to prevent excessive bleeding. The subscap was then released. There was still a fairly descent amount of subscap that was attached. She definitely had some calcific lesions about it. There was a full- thickness tear of the supra and infraspinatus tendon. The subscap was released and tagged and then the shoulder was externally rotated and brought through the wound. At this point, the humeral cut guide was then used to make a provisional cut. A starting awl was then used to localize the canal. The broaches were then begun and a size 5 to 6 was found to be appropriate. A protection plate was placed and attention was directed to the glenoid. The glenoid was exposed using posterior retractors. The soft tissues were carefully released. The subscap was freed of its adhesions. There were grade 4 changes to the glenohumeral joint. The anterior, posterior, and superior labrum were then carefully released using electrocautery device. At this point , the provisional entry point was then marked and a size 25-mm guide was then placed. The guidewire was then placed inferiorly in the glenoid. This was checked to make sure it was not more anteriorly or posteriorly where she had wear both anteriorly and posteriorly, but it was not symmetric. The 25 baseplate reamer was then reamed. The footprint reamer size 36 was then used to hand ream. The centered 8- mm drill bit was then drilled and then a 6.5-mm drill bit was then drilled unicortically. This measured to about 23 mm and a size 25 x 25 baseplate was chosen. The drill hole was tapped and then the glenoid was placed with excellent purchase. Three interlocking screws were then placed. The glenoid was quite thin, so the smaller screws were used. This allowed for excellent purchase. The size 36- mm glenosphere was then impacted in position and was secured with a set screw. Attention was then directed back to the humerus, which was then checked. The stem was found to be somewhat loose; therefore, it was trialed again and a size 6 found to be fitting a little bit better with care to not break her humerus. This was then trialed with a +6 poly. It was found to have a good fit with appropriate amount of shuck, external rotation to about 50 degrees, forward flexion to about 140 degrees, she was able to be internally rotated to her buttock and abduct to 90. At this point, the final implants were chosen and prepared on the back table by the attending surgeon. Two #5 Ethibond sutures were passed transosseously through the humerus for a subscap repair. The final implants were impacted into position with excellent purchase. The shoulder was then reduced and taken through range of motion, which was found to be the same as with the trial. The wounds were then copiously irrigated with sterile saline. The subscap was closed with previously passed transosseous sutures. The wounds were copiously irrigated again. A drain was then placed. The deltopectoral interval was closed with #2 Ethibond and the wound irrigated again. The skin was closed in layers with 2-0 Vicryl and 3-0 Monocryl. Sterile dressings, a cryo/Cuff and a sling were applied. She was awoken from anesthesia and transferred to the PACU in stable condition. POSTOPERATIVE PLAN: She will be nonweightbearing. She will have some passive range of motion of shoulder but allowed active ROM of elbow, wrist, and hand. She will be admitted overnight for 24 hours of postoperative antibiotics. She will be on DVT prophylaxis while in-house. I will see the patient back 10 to 14 days after discharge. [id number]/[facility] #: [id number] RIVER
[2018-09-02] MEDS: Clindamycin 600 MG IVPREMIX(* 600 MG/50 ML SDV IV SCH ×2 (00:09→08:43)
[2018-09-02] MEDS: oxyCODONE TAB* 5 MG TAB PO PRN ×2 (00:13→06:24)
[2018-09-02] MEDS: oxyCODONE/Acetamin 5/325 MG* TAB PO PRN ×4 (04:19→19:51)
[2018-09-02] MEDS: Acetaminophen TAB* 325 MG PO SCH ×3 (04:26→20:16)
[2018-09-02 06:33] LABS: Hematocrit 28 % (35-47); Hemoglobin 9.9 g/dl (12.0-16.0); Mean Platelet Volume 8.7 fL (7.4-10.4); Platelet Count 213 10^3/ul (150-450)
[2018-09-02 06:48] LABS: EGFR Non-African American 41.9 (>60)
[2018-09-02] MEDS: Calcium Carbonate TAB* 1250 MG (CALCIUM 500 MG) PO SCH ×2 (08:55→19:51)
[2018-09-02] MEDS: Docusate CAP* 100 MG PO SCH ×2 (08:55→19:51)
[2018-09-02] MEDS: BENICAR 40 MG PO SCH (08:55)
[2018-09-02] MEDS: Metoprolol Succinate XL TAB* 100 MG PO SCH (08:55)
[2018-09-02] MEDS: Torsemide TAB* 20 MG PO SCH (08:55)
[2018-09-02] MEDS: Enoxaparin(*) 30 MG/0.3 ML SYR SUBCUT SCH (11:51)
--- NOTE | 2018-09-02 11:54 | PN ---
Progress Note - Progress Note Date of Service: 09/02/18 SOAP: Subjective: [] Patient was seen and examined at bedside. She feels well and her RUE pain is well controlled. Denies CP, SOB, dizzines, nausea. Objective: []General: Well appearing, NAD RUE: Sling in place and dressing CDI. Drain was removed with tip intact and tolerated well by the patient. Wrist and all 5 digits with flexion and extension intact. Thumbs up and okay sign intact. Sensation intact distally to light touch throughout hand and all digits. Capillary refill less than two seconds distally, radial pulse 2+. Calves supple and nontender without erythema, edema or palpable cords. Assessment: [] POD 1 sp Right shoulder reverse arthroplasty Plan: []PT/OT : NWB RUE, PROM only. no FF or abd past 90 no ER past 25, ok AROM elbow wrist and hand lovenox in house, no DVT prophylaxis outpt plan for DC home tomorrow hyponatremia to 129- chronically runs low per previous lab values. She is asymptomatic. I will restrict her fluid intake to 1200 ml today, encourage broth rather than plain water and repeat tomorrow. She will stay overnight tonight as she has not met her goals with PT. I anticipate she will DC home tomorrow Vital Signs Temp 98.3 F 09/02/18 07:26 Pulse 64 09/02/18 07:26 Resp 18 09/02/18 09:03 BP 139/49 09/02/18 07:26 Pulse Ox 96 09/02/18 07:26 Intake & Output 09/01/18 09/02/18 09/02/18 18:59 06:59 18:59 Intake Total 1420 240 360 Output Total 100 405 Balance 1320 -165 360 Intake: IV Fluids 1000 CLINDAMYCIN 900MG 50ML 50 LR 950 Oral 420 240 360 Output: Hemovac Amount #1 155 Urine 100 250 Other: Estimated Void Large Small # Voids 1 1 Laboratory Last Values Hgb 9.9 g/dl (12.0-16.0) L 09/02/18 05:51 Hct 28 % (35-47) L 09/02/18 05:51 Plt Count 213 10^3/ul (150-450) 09/02/18 05:51 MPV 8.7 fL (7.4-10.4) 09/02/18 05:51 Sodium 129 mmol/L (135-145) L 09/02/18 05:51 Potassium 4.2 mmol/L (3.5-5.0) 09/02/18 05:51 Chloride 94 mmol/L (101-111) L 09/02/18 05:51 Carbon Dioxide 27 mmol/L (22-32) 09/02/18 05:51 Anion Gap 8 mmol/L (2-11) 09/02/18 05:51 BUN 29 mg/dL (6-24) H 09/02/18 05:51 Creatinine 1.22 mg/dL (0.51-0.95) H 09/02/18 05:51 Est GFR ( Amer) 50.7 (>60) 09/02/18 05:51 Est GFR (Non-Af Amer) 41.9 (>60) 09/02/18 05:51 BUN/Creatinine Ratio 23.8 (8-20) H 09/02/18 05:51 Glucose 124 mg/dL (70-100) H 09/02/18 05:51 Calcium 8.5 mg/dL (8.6-10.3) L 09/02/18 05:51 Blood Type A Negative 09/01/18 06:38 Antibody Screen Negative 09/01/18 06:38
[2018-09-02] MEDS: Atorvastatin* 80 MG TAB PO SCH (17:35)
[2018-09-02] MEDS: amLODIPine TAB* 5 MG PO SCH (17:35)
--- NOTE | 2018-09-02 20:01 | PN ---
Progress Note - Progress Note Date of Service: 09/02/18 Note: Pt seen and examined at 6:15 am. She is doing ok. Pain was intense but calming down with medication. No numbness or tingling. AFVSS Dressing in place. SILT grossly. brisk cap refill. able to flex/ext digits Post op xrays reviewed and acceptable A/P POD#1 from reverse doingw ell will follow labs analgesia. drain d/c today dispo when able
[2018-09-03] MEDS: oxyCODONE/Acetamin 5/325 MG* TAB PO PRN ×5 (00:15→21:12)
[2018-09-03] MEDS: Acetaminophen TAB* 325 MG PO SCH ×3 (04:20→20:02)
[2018-09-03 04:45] LABS: Hematocrit 28 % (35-47); Hemoglobin 9.8 g/dl (12.0-16.0); Mean Platelet Volume 8.3 fL (7.4-10.4); Platelet Count 189 10^3/ul (150-450)
[2018-09-03] MEDS: BENICAR 40 MG PO SCH (09:37)
[2018-09-03] MEDS: Docusate CAP* 100 MG PO SCH ×2 (09:47→21:12)
[2018-09-03] MEDS: Calcium Carbonate TAB* 1250 MG (CALCIUM 500 MG) PO SCH ×2 (09:47→21:12)
[2018-09-03] MEDS: Torsemide TAB* 20 MG PO SCH (09:48)
[2018-09-03] MEDS: Metoprolol Succinate XL TAB* 100 MG PO SCH (09:48)
--- NOTE | 2018-09-03 11:02 | PN ---
Progress Note - Progress Note Date of Service: 09/03/18 SOAP: Subjective: []Patient seen OOB in chair, daughter present. Concerned that the sling isnt fitting correctly. She is having difficulty ambulating safely with PT which is holding up her discharge to home. Pain is under adequate control. Objective: [] Vital Signs Temp 98.3 F 09/03/18 07:24 Pulse 55 09/03/18 07:24 Resp 16 09/03/18 09:50 BP 127/44 09/03/18 07:24 Pulse Ox 93 09/03/18 07:24 Intake & Output 09/02/18 09/03/18 09/03/18 18:59 06:59 18:59 Intake Total 680 850 160 Output Total 0 650 300 Balance 680 200 -140 Intake: Oral 680 850 160 Output: Urine 0 650 300 Other: Estimated Void Medium # Bowel Movements 0 0 Laboratory Results - last 24 hr 09/03/18 09/03/18 04:34 04:34 Hgb 9.8 L Hct 28 L Plt Count 189 MPV 8.3 Sodium 126 L Right shoulder dressing changed today Incision benign with mild soft tissue edema sensation and motor function intact RUE new 4x4 and tegaderm applied to right shoulder incision Sling re adjusted and arm feels better supported Assessment: []s/p Reverse right total shoulder arthroplasty POD #2 Plan: []PT/OT- mobilize as tolerated- working on improvement in balance Sling adjusted and appears adequate Home with daughter when cleared with PT regarding safety, hopefully Thursday.
[2018-09-03] MEDS: Enoxaparin(*) 30 MG/0.3 ML SYR SUBCUT SCH (12:26)
[2018-09-03] MEDS: Atorvastatin* 80 MG TAB PO SCH (17:07)
[2018-09-03] MEDS: amLODIPine TAB* 5 MG PO SCH (17:08)
[2018-09-04] MEDS: oxyCODONE/Acetamin 5/325 MG* TAB PO PRN ×2 (01:59→07:54)
[2018-09-04] MEDS: Acetaminophen TAB* 325 MG PO SCH ×2 (03:44→12:11)
[2018-09-04 05:52] LABS: Hematocrit 29 % (35-47); Hemoglobin 10.2 g/dl (12.0-16.0); Mean Platelet Volume 8.4 fL (7.4-10.4); Platelet Count 191 10^3/ul (150-450)
[2018-09-04] MEDS: BENICAR 40 MG PO SCH (09:14)
[2018-09-04] MEDS: Docusate CAP* 100 MG PO SCH (09:15)
[2018-09-04] MEDS: Metoprolol Succinate XL TAB* 100 MG PO SCH (09:15)
[2018-09-04] MEDS: Calcium Carbonate TAB* 1250 MG (CALCIUM 500 MG) PO SCH (09:15)
[2018-09-04] MEDS: Torsemide TAB* 20 MG PO SCH (09:15)
--- NOTE | 2018-09-04 10:21 | PN ---
Progress Note - Progress Note Date of Service: 09/04/18 SOAP: Subjective: POD #3 Right reverse TSR, doing well. Pain controlled but requesting hydrocodone over oxycodone. Denies CP/SOB, + nausea, no vomiting. Objective: Vitals: Temp Pulse Resp BP Pulse Ox 98.1 F 73 18 155/61 94 /08/12 07:53 09/04/18 07:39 09/04/18 07:54 09/04/18 07:39 09/04/18 07:39 Gen: A&Ox3, NAD at rest laying in bed RUE: Dressing C/D/I. +f/e at wrist, MCP, PIP and DIP. N/V intact Labs: Laboratory Results - last 24 hr 09/04/18 05:26 Hgb 10.2 L Hct 29 L Plt Count 191 MPV 8.4 Assessment: POD #3 Right reverse TSR Plan: D/C home today F/u with Dr. Marie 10-14 days
[2018-09-04] MEDS: Enoxaparin(*) 30 MG/0.3 ML SYR SUBCUT SCH (12:09)
[2018-09-04 12:36] VITALS: BP 138/50
[2018-09-04] MEDS ORDERED: Scopolamine PATCH Remove* 1 NOTE MISC PATCH OFF ONE (15:00)
--- NOTE | 2018-09-04 16:59 | DS ---
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 SECONDARY DIAGNOSES: 1. Hypertension. 2. High cholesterol. 3. History of an myocardial infarction. 4. Gastroesophageal reflux disease. 5. Osteoporosis. HISTORY OF PRESENT ILLNESS: Ms. Lott is an 83-year-old female, who has had ongoing right shoulder pain and limited range of motion. She failed conservative measures and elected to undergo right total shoulder reversal arthroplasty. HOSPITAL COURSE: On 09/01/18, the patient was admitted to [facility] and underwent a successful right reverse total shoulder arthroplasty by Dr. Marie. She recovered briefly in the Postanesthesia care unit. She was transferred to the short stay surgical unit in stable condition on postop day one. The patient's pain was controlled with oral and IV pain medication. She had an acute blood loss anemia of 9.9 and 28. She did have some difficulty ambulating and was having trouble with her balance. PT found it not safe for her to be discharged home at this point. On postop day 2, the patient again had good pain control with Percocet, although she did have some dizziness and nausea. H and H were stable at 9.8 and 28. She again had some difficulty with ambulation and was found to have slight hyponatremia. She was placed on a fluid restriction at this point. On postop day 3, the patient was feeling much better. She had less nausea and pain was well controlled with oral pain medications. She requested to switch to [place] over the Percocet and to see that alleviate some of the dizziness. H and H were 10.2 and 29. Throughout the hospital course, the patient remained normotensive and afebrile. DISCHARGE CONDITION: Stable. DISCHARGE DISPOSITION: Home with home care nursing and therapy. DISCHARGE MEDICATIONS: The patient will have [place] 5/325 one to two tablets p.o. q.6 hours p.r.n. pain. She will resume her home medications of: 1. Atorvastatin 80 mg daily 2. Aspirin 81 mg daily. 3. Metoprolol succinate XL 100 mg daily. 4. Calcium carbonate 600 mg b.i.d. 5. Benicar 40 mg daily. 6. Amlodipine 10 mg daily. 7. Torsemide 10 mg daily. 8. Tylenol as needed to alternate with the [place] for pain. 9. Nitroglycerin sublingual 0.4 mg as needed. DISCHARGE INSTRUCTIONS: The patient was weightbearing as tolerated. On her lower extremity, she is nonweightbearing. With the right upper extremity, she is to do no active range of motion of the shoulder. She may do active and passive range of motion at the elbow, wrist, and hand. She is to wear a sling at all other time. She will use a Cryo unit as needed for pain control. She is able to shower normally and wash with soap and water, apply a dry dressing as needed. She will follow up in the office with Dr. Marie in to 14 days postoperatively. She is understanding to call the office with any problems or concerns, should go directly to the emergency room with any chest pain, shortness of breath, fever greater than 101, calf pain or swelling. KEYSHA HAYES [id number]/[facility] #: [id number] [place]
== END 2018-09-04 13:15 | disposition home health service (06) | DRG 483 ==
LOC: AA 05:54 → SSU 10:03
PROVIDERS: ADMIT Orthopaedic Surgery; ATTEND Orthopaedic Surgery
PROC: 0RRJ00Z Replacement of Right Shoulder Joint with Reverse Ball and Socket Synthetic Substitute, Open Approach (ICD-10-PCS; principal; 2018-09-01 07:30)
DX: M19.011 Primary osteoarthritis, right shoulder (principal); M75.101 Unspecified rotator cuff tear or rupture of right shoulder, not specified as traumatic; E78.00 Pure hypercholesterolemia, unspecified; I10 Essential (primary) hypertension; K21.9 Gastro-esophageal reflux disease without esophagitis; M81.0 Age-related osteoporosis without current pathological fracture; M71.311 Other bursal cyst, right shoulder; Z96.643 Presence of artificial hip joint, bilateral; Z96.612 Presence of left artificial shoulder joint; I25.2 Old myocardial infarction; Z79.1 Long term (current) use of non-steroidal anti-inflammatories (NSAID); Z79.82 Long term (current) use of aspirin; Z79.899 Other long term (current) drug therapy; Z88.0 Allergy status to penicillin; Z88.8 Allergy status to other drugs, medicaments and biological substances; Z82.49 Family history of ischemic heart disease and other diseases of the circulatory system; Z80.9 Family history of malignant neoplasm, unspecified
CPT/HCPCS: 36415; 80048; 84300; 85014; 85018; 85049; 86850; 86900; 86901; A9270-GY; C1713; C1776; G8978-GP-CK; G8979-GP-CI; G8987-GO-CK; G8988-GO-CK; G8989-GO-CK; J1240; J1650; J1885; J2250; J2270; J2405; J2704; J2710; J3010; J3490; J8540

== ENCOUNTER 2019-02-27 11:46 | Emergency (ER) | payer MEDICARE, BC ==
[2019-02-27 12:14] VITALS: BP 168/70
--- NOTE | 2019-02-27 12:37 | UC ---
Eye Complaint HPI - HPI Summary HPI Summary: Left eyelid swelling and redness noticed on Thursday. Getting worse. Now eye has drainage and itching. Warm compresses with some relief. - History of Current Complaint Chief Complaint: UCEye Stated Complaint: EYE COMPLAINT Time Seen by Provider: 02/27/19 12:26 Hx Obtained From: Patient ?: No Onset/Duration: Sudden Onset, Lasting Days Timing: Constant Severity Initially: Mild Severity Currently: Moderate Pain Intensity: 5 Location of Injury: Eye Lid (upper) Associated Signs And Symptoms: Positive: Swelling - Allergies/Home Medications Allergies/Adverse Reactions: Allergies Allergy/AdvReac Type Severity Reaction Status Date / Time valsartan Allergy Intermediate Diaphoresis Verified 02/27/19 12:02 benazepril Allergy Coughing Verified 02/27/19 12:02 Penicillins Allergy Unknown Verified 02/27/19 12:02 Reaction Details tramadol Allergy Nausea And Verified 02/27/19 12:02 Vomiting PMH/Surg Hx/FS Hx/Imm Hx Previously Healthy: Yes - Surgical History Surgical History: Yes Surgery Procedure, Year, and Place: TONSILLECTOMY A CHILD. HYSTERECTOMY 1982 [place]. L FOOT BUNIONECTOMY 2005 [facility]. R TOTAL KNEE REPLACEMENT 2006 [facility]. ORIF LT SHOULDER ARM. LT HIP REPLACEMENTx3 2006 [facility]. L THR 2012 [facility]. BILAT CATARACTS [facility] - Family History Known Family History: Negative: Blood Disorder Family History: No FHx malignant hyperthermia, no FHx anesthesia reaction - Social History Alcohol Use: None Substance Use Type: None Smoking Status (MU): Never Smoked Tobacco Have You Smoked in the Last Year: No - Immunization History Most Recent Influenza Vaccination: 2017 Most Recent Tetanus Shot: UNKNOWN Most Recent Pneumonia Vaccination: 2014 Review of Systems All Other Systems Reviewed And Are Negative: Yes Constitutional: Positive: Negative Eyes: Positive: Eye Redness, Other - erythema and localized swlling of the upper eye lid Physical Exam Triage Information Reviewed: Yes Appearance: Well-Appearing, Well-Nourished, Pain Distress Vital Signs: Initial Vital Signs Temp 98.6 F 02/27/19 12:03 Pulse 60 02/27/19 12:03 Resp 16 02/27/19 12:03 BP 168/70 02/27/19 12:03 Pulse Ox 98 02/27/19 12:03 Vital Signs Reviewed: Yes Eyes: Positive: Other: - localized swelling and erythema of the upper eye lid at the lash line ENT: Positive: Pharyngeal erythema, TMs normal Dental Exam: Normal Neck exam: Normal Respiratory Exam: Normal Cardiovascular Exam: Normal Abdominal Exam: Normal Bowel Sounds: Positive: Present Musculoskeletal Exam: Normal Neurological Exam: Normal Psychological Exam: Normal Skin Exam: Normal Eye Complaint Course/Dx - Course Course Of Treatment: history obtained, exam performed ,meds reviewed, treated for infected stye - Differential Dx/Diagnosis Differential Diagnosis/HQI/PQRI: Conjunctivitis, Periorbital Cellulitis Provider Diagnosis: Hordeolum externum left upper eyelid Discharge - Sign-Out/Discharge Documenting (check all that apply): Patient Departure All imaging exams completed and their final reports reviewed: No Studies - Discharge Plan Condition: Stable Disposition: HOME Patient Education Materials: Monica (ED) Referrals: Bebeto Rousseau MD [Primary Care Provider] - Additional Instructions: 1. use the antibiotic as prescribed. 2. Warm compresses to the eye, multiple times a day till healed. 3. Follow up with dr wei at your upcoming appointment. - Billing Disposition and Condition Condition: STABLE Disposition: Home
== END 2019-02-27 12:50 | disposition home or self-care (01) ==
LOC: UCCORT 11:46
DX: H00.014 Hordeolum externum left upper eyelid (principal); Z96.651 Presence of right artificial knee joint; Z96.642 Presence of left artificial hip joint; Z88.5 Allergy status to narcotic agent; Z88.0 Allergy status to penicillin; Z88.8 Allergy status to other drugs, medicaments and biological substances
CPT/HCPCS: 99212; G0463